=== PATIENT | female | born 1995 | race Caucasian/White ===

== ENCOUNTER 2021-12-08 21:35 | Emergency (ER) | payer BC, SELFPAY ==
[2021-12-08 21:36] VITALS: BP 127/80; PULSE 100; RESP 18; TEMP 36.9; O2SAT 98; BMI 26.7
--- NOTE | 2021-12-08 22:10 | HMH.EDDIZZ ---
ED Disposition Clinical Impression: Mononucleosis, infectious, with hepatitis Disposition: Home, Self-Care Condition on Discharge: Good Instructions: DI for Mononucleosis-Adult Additional Instructions: fluids and see pcp for f/u and follow labs Referrals: Provider,Referral, [Primary Care Provider] - - Critical Care Critical Care Time: No Attestation: On 12/08/21, the high probability of a clinically significant, sudden or life threatening deterioration of the following system(s) required my full and direct attention, intervention and personal management. The time I documented below is in addition to time spent performing reported procedures but includes the following listed in this critical care notation. Medical Decision Making - Medical Records Medical records reviewed: Yes: I reviewed the patient's medical records. - Noman Inquiry Pt receiving controlled substance: No Vital Signs: 12/08/21 21:36 Temperature 98.5 F Temperature Source Oral Pulse Rate [Left Radial] 100 H Respiratory Rate 18 Blood Pressure [Right Arm] 127/80 Blood Pressure Mean [Right Arm] 95 02 Sat by Pulse Oximetry 98 Oxygen Delivery Method Room Air - Lab Data Lab results reviewed: Yes: I reviewed the patient's lab results. Lab Results 12/08/21 22:25: ESR 17 12/08/21 22:25: C-Reactive Protein 15.2 H, Procalcitonin 0.201 12/08/21 22:25: WBC 6.7, RBC 5.07, Hgb 13.7, Hct 41.3, MCV 81.4, MCH 26.9 L, MCHC 33.1, RDW 16.0, Plt Count 205, MPV 7.4, Neut % (Auto) 32.6 L, Lymph % (Auto) 61.8 H, [place] % (Auto) 5.0, Eos % (Auto) 0.5, Baso % (Auto) 5.1 H, Neut # (Auto) 2.2, Lymph # (Auto) 4.1, [place] # (Auto) 0.3, Eos # (Auto) 0.0, Baso # (Auto) 0.3 H, Total Counted 100, Neutrophils % (Manual) 30 L, Lymphocytes % (Manual) 68 H, Monocytes % (Manual) 1 L, Basophils % (Manual) 1.0, Platelet Estimate Normal, RBC Morphology Normal 12/08/21 22:25: Sodium 136, Potassium 3.9, Chloride 104, Carbon Dioxide 27, Anion Gap 8.9, BUN 10, Creatinine 0.90, Estimated Creat Clear 108, Estimated GFR 77, Est GFR ( Amer) 93, Glucose 100, Calcium 9.0, Total Bilirubin 0.8, AST 637 H*, ALT 231 H, Alkaline Phosphatase 253 H, Total Protein 8.1, Albumin 4.5, Globulin 3.6 H, Albumin/Globulin Ratio 1.3 12/08/21 22:25: Lactate 0.8 12/08/21 22:25: Monoscreen Positive A 12/08/21 22:40: Urine Color Yellow, Urine Appearance Clear, Urine pH 7.5, Ur Specific [place] 1.010, Urine Protein Negative, Urine Glucose (UA) Negative, Urine Ketones Negative, Urine Blood 1+, Urine Nitrate Negative, Urine Bilirubin Negative, Urine Urobilinogen 0.2, Ur Leukocyte Esterase Negative, Urine RBC 3-5, Urine WBC 3-5, Ur Squamous Epith Cells 3-5, Urine Bacteria 1+ Result diagrams: 12/08/21 22:25 12/08/21 22:25 Orders (Tests/Meds): ED MEDICATIONS Generic Name Dose Route Start Last Admin Trade Name Freq PRN Reason Stop Dose Admin Lactated Ringer's 1,000 mls @ 999 mls/hr 12/08/21 22:30 12/08/21 22:44 Lactated Ringer's 1000 Ml Bag IV 12/08/21 23:30 999 mls/hr .Q1H1M ANN Administration ORDERS Category Date Time Status Blood Culture Stat Micro 12/08/21 22:25 Received - CT Data CT Scan: Head, Sinus Time Received: 23:[address] Reviewed: Yes: I have viewed the radiologist's interpretation Preliminary Findings: Normal/NAD Medical Decision Narrative: has prob mono - has elevated lft but not help syndrome and stable Dizzy HPI - General Chief Complaint: Ear Stated Complaint: dizzy Time Seen by Provider: 12/08/21 22:10 Mode of Arrival: Ambulatory Source of Information: Patient, Spouse, Medical Record Limitations: No Limitations Description of Symptoms (Recalled from ER Triage Doc. by RN): LEFT EAR PAIN AND DIZZINESS X 2 DAYS. PT REPORTS SHE IS BREAST FEEDING AND 11 WEEKS - History of Present Illness HPI Narrative: acute onset of dizzyness with mov and at rest since sat - no trauma but reported temp today - no rash or focal changes - is 11 weeks post-partu
--- NOTE | 2021-12-08 22:19 | CT_ITS ---
PROCEDURE INFORMATION: Exam: CT Maxillofacial Without Contrast, Sinus Exam date and time: 12/08/2021 10:33 PM Age: 26 years old Clinical indication: Other: Dizziness, ear pain TECHNIQUE: Imaging protocol: CT Maxillofacial without contrast. Focus on the sinuses. Radiation optimization: All CT scans at this facility use at least one of these dose optimization techniques: automated exposure control; mA and/or kV adjustment per patient size (includes targeted exams where dose is matched to clinical indication); or iterative reconstruction. COMPARISON: CT HEAD/BRAIN WO CON 12/08/2021 10:31 PM FINDINGS: Frontal sinuses: Normal. No air-fluid levels. Ethmoid air cells: Normal. No air-fluid levels. Sphenoid sinuses: Normal. No air-fluid levels. Maxillary sinuses: Subtle mucosal thickening in the maxillary sinuses. Air-fluid level in the right maxillary sinus. Ostiomeatal units are patent. Nasal cavity/Septum: Right nasal viktoria bullosa deformity. Orbital cavities: Orbits are normal. Globes are unremarkable. Bones/joints: Unremarkable. Soft tissues: Unremarkable. Temporal bone: Normal bilateral temporal bones. Bony scutum bilaterally are sharp and intact. Bilateral ossicular chains and semi circular canals are normal. Bilateral Prussak's space is normal. Bilateral middle and inner ears are patent. IMPRESSION: Unremarkable sinuses.
--- NOTE | 2021-12-08 22:19 | CT_ITS ---
PROCEDURE INFORMATION: Exam: CT Head Without Contrast Exam date and time: 12/08/2021 10:31 PM Age: 26 years old Clinical indication: Dizziness; Additional info: Dizziness, ear pain TECHNIQUE: Imaging protocol: Computed tomography of the head without contrast. Radiation optimization: All CT scans at this facility use at least one of these dose optimization techniques: automated exposure control; mA and/or kV adjustment per patient size (includes targeted exams where dose is matched to clinical indication); or iterative reconstruction. COMPARISON: No relevant prior studies available. FINDINGS: Brain: Normal. No hemorrhage. Unremarkable white matter. No mass effect. Cerebral ventricles: No ventriculomegaly. Paranasal sinuses: Visualized sinuses are unremarkable. No fluid levels. Mastoid air cells: Visualized mastoid air cells are well aerated. Bones/joints: Unremarkable. No acute fracture. Soft tissues: Unremarkable. IMPRESSION: No acute intracranial abnormality.
[2021-12-08 22:43] LABS: Basophils # 0.3 K/mm3 (0-0.2); Basophils % 5.1 % (0.1-2.0); Eosinophils % 0.5 % (0.1-12.0); Hematocrit 41.3 % (37.0-47.0); Hemoglobin 13.7 g/dL (12.2-16.2); Lymphocytes # 4.1 K/mm3 (0.7-4.5); Lymphocytes % 61.8 % (10-50); Mean Corpuscular HGB Conc 33.1 g/dL (31.8-35.4); Mean Corpuscular Hemoglobin 26.9 pg (27.0-31.2); Mean Corpuscular Volume 81.4 fl (81-99); Mean Platelet Volume 7.4 fl (7.4-10.4); Monocytes # 0.3 K/mm3 (0.1-1.0); Neutrophils # 2.2 K/mm3 (1.8-7.8); Neutrophils % 32.6 % (37.0-80.0); Platelet Count 205 K/mm3 (142-424); Red Blood Count 5.07 M/mm3 (4.20-5.40); White Blood Count 6.7 K/mm3 (4.8-10.8)
[2021-12-08 22:45] LABS: MANUAL DIFFERENTIAL MANUAL DIFFERENTIAL (MANUAL DIFF)
[2021-12-08 22:47] LABS: Monoscreen (Rapid) Positive (Negative)
[2021-12-08 22:47] LABS: Microscopic, Urine URINE MICROSCOPIC (MICROSCOPIC)
--- NOTE | 2021-12-08 22:49 | PC.NURSE ---
patient back from CT, blanket given
[2021-12-08 22:50] LABS: Lactic Acid 0.8 mmol/L (0.7-2.1)
[2021-12-08 22:51] LABS: Alanine Aminotransferase 231 U/L (12-78); Albumin Level 4.5 g/dl (3.5-5.0); Albumin/Globulin Ratio 1.3 (1.1-1.8); Alkaline Phosphatase 253 U/L (38-126); Anion Gap 8.9 mEq/L (5-15); Aspartate Amino Transferase 637 U/L (14-36); Bilirubin,Total 0.8 mg/dl (0.2-1.3); Blood Urea Nitrogen 10 mg/dl (7-17); Carbon Dioxide 27 mmol/L (22.0-30.0); Chloride 104 mmol/L (98-107); Creatinine Clearance Estimated 108 mL/min (50-200); Estimated Glomerular Filt Rate 77 ml/min (>60); GFR (African American) 93 ML/MIN (>60); Globulin 3.6 g/dL (1.3-3.2); Glucose 100 mg/dl (74-100); Potassium 3.9 mmoL/L (3.5-5.1); Sodium 136 mmol/L (136-145); Total Protein,Serum 8.1 g/dl (6.3-8.2)
[2021-12-08 22:51] LABS: Appearance,Urine CLEAR (Clear); Bilirubin,Urine Negative (Negative); Blood, Urine 1+ (Negative); Color,Urine YELLOW (Yellow); Glucose,Urine (UA) Negative (Negative); Ketones,Urine Negative (Negative); Leukocyte Esterase,Urine Negative (Negative); Nitrate,Urine Negative (Negative); PH,Urine 7.5 (5.0-8.5); Protein,Urine Negative (Negative); Urobilinogen,Urine 0.2 EU/dl (0.2)
[2021-12-08 22:55] LABS: C-Reactive Protein 15.2 mg/L (0-4)
[2021-12-08 23:02] LABS: Bacteria,Urine 1+ /lpf
[2021-12-08 23:08] LABS: Procalcitonin 0.201 ng/mL (0.0-2.0)
[2021-12-08 23:11] LABS: Lymphocytes % 68 % (10-50); Monocytes % 1 % (2-9); Neutrophils % 30 % (42-76); Platelet Estimate Normal; RBC Morphology Normal; Total Cells Counted 100
[2021-12-08 23:21] LABS: Erythrocyte Sedimentation Rate 17 mm/hr (0-20)
[2021-12-08 23:27] VITALS: BP 120/78; PULSE 85; RESP 18; TEMP 36.9; O2SAT 99
== END 2021-12-08 23:42 | disposition home or self-care (01) ==
PROVIDERS: Emergency Provider Emergency Medicine
DX: B27.90 Infectious mononucleosis, unspecified without complication (principal)
CPT/HCPCS: 70450; 70486; 80053; 81001; 83605; 84145; 85007; 85025; 85651; 86140; 86318; 87040; 96360; 99284

== ENCOUNTER → 2022-04-20 09:40 | Outpatient (CLI) | payer BC, SELFPAY ==
--- NOTE | 2022-04-20 09:45 | XR_ITS ---
FINAL REPORT CLINICAL HISTORY: PAIN IN left WRIST FINDINGS: 3 views of the left wrist were obtained. There is a small cyst in the lunate. There is no acute fracture or dislocation. The joint spaces are intact. There is no soft tissue abnormality. IMPRESSION: No acute abnormality. Reviewed, Interpreted and Dictated by Misael Webb III, MD Transcribed by Nikita Lauren Authenticated and [facility]
== END ==
PROVIDERS: PCP Nurse Practitioner; Visit Provider Nurse Practitioner
DX: M25.532 Pain in left wrist (principal)
CPT/HCPCS: 73110

== ENCOUNTER 2022-05-06 12:08 | Emergency (ER) | payer BC, SELFPAY ==
[2022-05-06 12:09] VITALS: BP 127/86; PULSE 100; RESP 22; TEMP 37; O2SAT 98; BMI 29.2
--- NOTE | 2022-05-06 13:11 | EXP.UTC ---
Discharge Plan Disposition Patient Disposition: Home, Self-Care Condition: Good Prescriptions Prescriptions: New benzonatate [benzonatate] 100 mg capsule 100 mg PO TIDP PRN (Reason: Cough) Qty: 30 0RF oluasrjkchghenj-tnywuwaoe-RJ [Bromfed DM] 2-30-10 mg/5 mL Syrup 5 ml PO Q6H PRN (Reason: Cough) Qty: 240 0RF Referrals Follow up/Referrals: Shakira Smith APRN [Primary Care Provider] - See instructions Activity Restrictions/Add. Instructions Additional Instructions/Restrictions: Drink plenty of fluids. Take tylenol for pain or fever. Return if you begin to have difficulty breathing. Follow up with your regular doctor. GO TO THE ER FOR ANY WORSENING SYMPTOMS You need to be tested for viral illnesses, such as covid-19, etc. Clinical Impressions Clinical Impression: Acute viral syndrome Instructions Patient Instructions: DI for Viral Syndrome Discharge ED Provider: Jeramie Van [facility] General Stated complaint: Congestion Time Seen by Provider: 05/06/22 13:11 History of Present Illness Provider Complaint: She c/o sore throat and congestion for the past 2 days Related Data Previous Rx's Medication Instructions Recorded benzonatate 100 mg capsule 100 mg PO TIDP PRN Cough #30 caps 05/06/22 nnicdefxgzppnvd-jusxkzcmhlppncp-WQ 5 ml PO Q6H PRN Cough #240 mL 05/06/22 2 mg-30 mg-10 mg/5 mL oral syrup (Bromfed DM) Allergies Allergy/AdvReac Type Severity Reaction Status Date / Time Sulfa (Sulfonamide Allergy Rash Verified 12/08/21 22:18 Antibiotics) [facility] Social History Smoking Status: Never smoker alcohol intake: never current occupational status: employed Travel in the last 8 weeks: None ROS Obtained: Yes All systems reviewed & no additional complaints except as documented Constitutional Constitutional: Reports system reviewed and no additional complaints, except as documented, Denies chills and Denies fever(s) Eyes Eyes: Denies eye discharge ENT Ears, Nose, Mouth, and Throat: Denies dysphagia, Denies sore throat and Denies throat swelling Cardiovascular Cardiovascular: Denies chest pain and Denies dyspnea Respiratory Respiratory: Denies chest congestion, Denies cough and Denies dyspnea Gastrointestinal Gastrointestingal: Denies abdominal pain, constipation, diarrhea, dysphagia, nausea or vomiting Musculoskeletal Musculoskeletal: Denies arthralgias Integumentary/Breasts Skin/Breast: Denies rash Neurologic Neurologic: Denies paresthesias Allergic/Immunologic Allergic/Immunologic: Denies throat swelling Physical Exam General General appearance: alert and in no apparent distress Head Head exam: atraumatic, normocephalic and normal inspection Eye Eye exam: Present normal appearance, PERRL and EOMI ENT ENT exam: Present normal exam, normal oropharynx, mucous membranes moist, TM's normal bilaterally and normal external ear exam Neck Neck exam: Present normal inspection, full ROM and trachea midline; Absent meningismus or lymphadenopathy Chest Chest inspection: Present normal inspection and symmetric chest wall rise; Absent tenderness Respiratory Respiratory exam: Present normal lung sounds bilaterally; Absent respiratory distress Cardiovascular Cardiovascular exam: Present regular rate and normal rhythm; Absent JVD Abdominal Exam Abdominal exam: Present soft and normal bowel sounds; Absent distention, tenderness or guarding Extremities Exam Extremities exam: Present normal inspection, full ROM and normal capillary refill; Absent calf tenderness Back Exam Back exam: Present normal inspection; Absent tenderness Neurological Exam Neurological exam: Present alert and oriented X3 Psychiatric Psychiatric exam: Present normal affect and normal mood Skin Skin exam: Present warm, dry, intact and normal color Lymphatic Lymphatic Findings: no adenopathy Medical Decision Making Medical Records Medic
[2022-05-06 13:14] LABS: UTC Strep Screen (Rapid) Negative (Negative)
[2022-05-06 13:58] VITALS: BP 124/86; PULSE 100; RESP 22; TEMP 37; O2SAT 98
--- NOTE | 2022-05-06 14:07 | PC.NURSE ---
Addendum entered by Felecia Raman RN 05/06/22 14:07: pt refused Original Note: mother refused covid test
== END 2022-05-06 14:08 | disposition home or self-care (01) ==
PROVIDERS: Emergency Provider Nurse Practitioner Family; PCP Nurse Practitioner
DX: B34.9 Viral infection, unspecified (principal); J02.9 Acute pharyngitis, unspecified; R09.81 Nasal congestion
CPT/HCPCS: 87880; 99212; G0463

== ENCOUNTER 2023-06-24 10:21 | Emergency (ER) | payer BC, SELFPAY ==
[2023-06-24 10:40] VITALS: BP 119/83; PULSE 115; RESP 18; TEMP 37.1; O2SAT 98; BMI 30.7
--- NOTE | 2023-06-24 10:52 | EXP.UTC ---
Discharge Plan Disposition Patient Disposition: Home, Self-Care Condition: Good Prescriptions Prescriptions: New methylprednisolone 4 mg Tablets,Dose Pack 4 mg PO DIRECTED Qty: 21 0RF rtoxjgtlufyhuqj-ujiqxdokv-HE [Bromfed DM] 2-30-10 mg/5 mL Syrup 5 ml PO Q6H PRN (Reason: Cough) Qty: 240 0RF cefdinir 300 mg capsule 300 mg PO BID Qty: 20 0RF No Action Cleocin 100 mg suppository See Rx Instructions .ROUTE .COMPLEX Patient Comments: INSERT 1 SUPPOSITORY INTO THE VAGINA IN THE EVENING FOR 3 DAYS Rx Instructions: INSERT 1 SUPPOSITORY INTO THE VAGINA IN THE EVENING FOR 3 DAYS Referrals Follow up/Referrals: Provider,Referral, MD [Primary Care Provider] - See instructions Activity Restrictions/Add. Instructions Additional Instructions/Restrictions: Drink plenty of fluids. Take tylenol or ibuprofen for pain or fever. Take the medications as directed. Follow up with your regular doctor. GO TO THE ER FOR ANY WORSENING SYMPTOMS Clinical Impressions Clinical Impression: Otitis media, Acute viral syndrome, Upper respiratory infection Instructions Patient Instructions: Middle Ear Infection Discharge ED Provider: Jeramie Van [facility] General Stated complaint: ANGUIANO, ear pain Time Seen by Provider: 06/24/23 10:52 History of Present Illness Provider Complaint: She states that for the past 2 days she has had sore throat, chills, body aches and low grade fever. Related Data Home Medications Medication Instructions Recorded Confirmed clindamycin phosphate 100 mg See Rx Instructions .Route .COMPLEX 06/24/23 06/24/23 vaginal suppository (Cleocin) Previous Rx's Medication Instructions Recorded axugearmuucibtu-pykoojgpxtpmocz-PA 5 ml PO Q6H PRN Cough #240 mL 06/24/23 2 mg-30 mg-10 mg/5 mL oral syrup (Bromfed DM) cefdinir 300 mg capsule 300 mg PO BID #20 caps 06/24/23 methylprednisolone 4 mg tablets in 4 mg PO DIRECTED #21 tabs 06/24/23 a dose pack Allergies Allergy/AdvReac Type Severity Reaction Status Date / Time Penicillins Allergy Verified 06/24/23 10:57 Sulfa (Sulfonamide Allergy Rash Verified 06/24/23 10:57 Antibiotics) [facility] Disclaimer: The information contained in this section may have been updated after the patient was seen, as this information can be updated by other users. Social History Smoking Status: Never smoker alcohol intake: never current occupational status: employed Travel in the last 8 weeks: None ROS Obtained: Yes All systems reviewed & no additional complaints except as documented Constitutional Constitutional: Reports chills and Reports fever(s) Eyes Eyes: Denies eye discharge ENT Ears, Nose, Mouth, and Throat: Reports as per HPI Cardiovascular Cardiovascular: Denies chest pain Respiratory Respiratory: Denies chest congestion and Reports cough Gastrointestinal Gastrointestingal: Reports nausea; Denies abdominal pain, constipation, cramping, diarrhea or vomiting Musculoskeletal Musculoskeletal: Denies arthralgias Integumentary/Breasts Skin/Breast: Denies rash Neurologic Neurologic: Denies paresthesias Physical Exam General General appearance: alert and in no apparent distress Head Head exam: atraumatic, normocephalic and normal inspection Eye Eye exam: Present normal appearance; Absent PERRL or EOMI ENT ENT exam: Present mucous membranes moist and normal external ear exam Expanded ENT Exam TM/Canal exam: Bilateral TM: erythema, bulging and effusion Nose exam: Absent sinus tenderness Nasal speculum exam: Bilateral: normal Mouth exam: Present normal external inspection and other; Absent drooling Teeth exam: Present normal inspection Throat exam: Present tonsillar erythema and tonsillomegaly Neck Neck exam: Present normal inspection, full ROM and trachea midline; Absent tenderness, meningismus or lymphadenopathy Chest Chest inspection:
[2023-06-24 11:52] VITALS: BP 119/83; PULSE 115; RESP 18; TEMP 37.1; O2SAT 98
== END 2023-06-24 11:30 | disposition home or self-care (01) ==
PROVIDERS: Emergency Provider Nurse Practitioner Family
DX: H66.93 Otitis media, unspecified, bilateral (principal); J06.9 Acute upper respiratory infection, unspecified; B34.9 Viral infection, unspecified
CPT/HCPCS: 99212; 99214; G0463

== ENCOUNTER → 2023-08-17 23:33 | Outpatient (CLI) | payer BC, SELFPAY ==
[2023-08-17 18:55] LABS: Adenovirus,PCR Not Detected (NotDetected); Coronavirus 19, PCR Not Detected (NotDetected); Coronavirus 229E Not Detected (NotDetected); Coronavirus NL63 Not Detected (NotDetected); Coronavirus OC43 Not Detected (NotDetected); Coronovirus HKU1,PCR Not Detected (NotDetected); Human Metapneumovirus Not Detected (NotDetected); Influenza A, PCR Not Detected (NotDetected); Influenza AH1, 2009 Not Detected (NotDetected); Influenza AH1, PCR Not Detected (NotDetected); Influenza AH3,PCR Not Detected (NotDetected); Influenza B, PCR Not Detected (NotDetected); Parainfluenza 1, PCR Not Detected (NotDetected); Parainfluenza 2, PCR Not Detected (NotDetected); Parainfluenza 3, PCR Not Detected (NotDetected); Parainfluenza 4, PCR Not Detected (NotDetected); Respiratory Syncytial Virus Not Detected (NotDetected)
[2023-08-18 00:54] LABS: Rhinovirus/Enterovirus Detected (NotDetected)
== END ==
LOC: LAB.DROPOF 23:34
PROVIDERS: PCP Nurse Practitioner Family; Visit Provider Nurse Practitioner Family
DX: R05.9 Cough, unspecified (principal); B34.1 Enterovirus infection, unspecified
CPT/HCPCS: 87581; 87632; 87635; 87798

== ENCOUNTER 2024-06-10 11:10 | Emergency (ER) | payer BC, SELFPAY ==
--- NOTE | 2024-06-10 11:40 | ED_ITS ---
Discharge Plan Disposition Patient Disposition: Home, Self-Care Condition: Good Prescriptions Prescriptions: New mupirocin 2 % ointment 1 applic topical TID 7 Days Qty: 15 0RF clindamycin palmitate HCl 75 mg/5 mL recon soln 300 mg PO Q8H 10 Days Qty: 600 0RF Referrals Follow up/Referrals: Shahrzad Manning APRN [Primary Care Provider] - See instructions Activity Restrictions/Add. Instructions Additional Instructions/Restrictions: Take the oral antibiotics and apply the topical antibiotic ointment as directed. Watch the wound for signs of worsening infection, such as worsening redness, swelling, drainage, fever. etc. Follow up with your regular doctor. GO TO THE ER FOR ANY WORSENING SYMPTOMS OR CONCERNS Clinical Impressions Clinical Impression: Cellulitis of left foot Stand Alone Forms Stand Alone Forms: Work/School Release Instructions Patient Instructions: Cellulitis Print Language Print Language: Persian Discharge ED Provider: Jeramie Van [facility] HPI General Stated complaint: red, swell, discharge at injection site, L foot Time Seen by Provider: 06/10/24 11:40 History of Present Illness Provider Complaint: She states that she has had redness and swelling of the top of her left foot and the area between her 3rd and 4th toes. She has an open area in between these toes also. She denies any fever/chills/malaise. Related Data Previous Rx's ?Medication ?Instructions ?Recorded clindamycin palmitate HCl 75 mg/5 300 mg (20 mL) PO Q8H 10 days #600 06/10/24 mL oral solution mL mupirocin 2 % topical ointment 1 applic topical TID 7 days #15 06/10/24 grams Allergies Allergy/AdvReac Type Severity Reaction Status Date / Time Penicillins Allergy Verified 08/17/23 10:28 Sulfa (Sulfonamide Allergy Rash Verified 08/17/23 10:28 Antibiotics) [facility] Disclaimer: The information contained in this section may have been updated after the patient was seen, as this information can be updated by other users. Medical History (Updated 06/10/24 @ 12:36 by Jeramie Van APRN) Upper respiratory infection Acute viral syndrome Otitis media Mononucleosis, infectious, with hepatitis Surgical History (Updated 08/17/23 @ 10:29 by Jass Delaney) No significant past surgical history Family History (Updated 08/17/23 @ 10:29 by Jass Delaney) Other No significant family history Social History Smoking Status: Never smoker alcohol intake: never current occupational status: employed Travel in the last 8 weeks: None ROS Obtained: Yes All systems reviewed & no additional complaints except as documented Constitutional Constitutional: Denies chills and Denies fever(s) Eyes Eyes: Denies eye discharge ENT Ears, Nose, Mouth, and Throat: Denies dizziness, Denies otalgia and Denies sore throat Cardiovascular Cardiovascular: Denies chest pain Respiratory Respiratory: Denies shortness of breath, Denies chest congestion, Denies cough, Denies stridor and Denies wheezing Gastrointestinal Gastrointestingal: Denies nausea or vomiting Musculoskeletal Musculoskeletal: Reports system reviewed and no additional complaints, except as documented and Denies arthralgias Integumentary/Breasts Skin/Breast: Reports as per HPI and Reports redness Neurologic Neurologic: Denies dizziness and Denies paresthesias Allergic/Immunologic Allergic/Immunologic: Denies wheezing Physical Exam General General appearance: alert and in no apparent distress Head Head exam: atraumatic, normocephalic and normal inspection Eye Eye exam: Present normal appearance, PERRL and EOMI ENT ENT exam: Present normal exam, normal oropharynx, mucous membranes moist, TM's normal bilaterally and normal external ear exam Neck Neck exam: Present normal inspection, full ROM and trachea midline; Absent meningismus or lymphadenopathy Chest Chest inspection: Present normal inspection and symmetric chest wall rise; Absent tenderness Respiratory Respiratory exam: Present normal lung sounds bilaterally; Absent respiratory distress Cardiovascular Cardiovascular exam: Present regular rate and normal rhythm; Absent JVD Abdominal Exam Abdominal exam: Present soft and normal bowel sounds; Absent distention, tenderness or guarding Extremities Exam Extremities exam: Present normal inspection, full ROM and normal capillary refill; Absent calf tenderness Back Exam Back exam: Present normal inspection; Absent tenderness Neurological Exam Neurological exam: Present alert and oriented X3 Psychiatric Psychiatric exam: Present normal affect and normal mood Skin Skin exam: Present erythema Lymphatic Lymphatic Findings: no adenopathy Medical Decision Making Medical Records Medical records reviewed: No I reviewed the patient's medical records. Screening: Per USPSTF and CDC recommendations, given the prevalence of disease in our region, it is our hospital?s policy to screen for HIV and viral Hepatitis for all patients aged 18 and over and those with ongoing risk factors. [place] Inquiry Pt receiving controlled substance: No
[2024-06-10 11:43] VITALS: BP 96/52; PULSE 79; RESP 20; TEMP 37.2; O2SAT 100; BMI 34.0
[2024-06-10 12:45] VITALS: BP 96/52; PULSE 79; RESP 20; TEMP 37.2
== END 2024-06-10 12:46 | disposition home or self-care (01) ==
PROVIDERS: Emergency Provider Nurse Practitioner Family; PCP Nurse Practitioner Family
DX: L03.116 Cellulitis of left lower limb (principal)
CPT/HCPCS: 87070; 87077; 87186; 87205; 99213; G0381

== ENCOUNTER 2024-11-28 10:00 | Outpatient (CLI) | payer BC, SELFPAY ==
--- NOTE | 2024-11-28 10:03 | XR_ITS ---
FINAL REPORT CLINICAL HISTORY: Nonspecific cough COMPARISON: None FINDINGS: No acute pulmonary density is evident. There are tiny calcified granulomas. There is no evidence of effusion or other pleural disease. The mediastinum has a normal appearance. The cardiac silhouette is unremarkable. IMPRESSION: No acute findings. Reviewed, Interpreted and Dictated by Manju Smith MD Transcribed by Irene Sadler Authenticated and [facility]
== END 2024-11-28 23:59 | disposition home or self-care (01) ==
LOC: RAD 10:01
PROVIDERS: PCP Nurse Practitioner Family; Visit Provider Nurse Practitioner
DX: R09.89 Other specified symptoms and signs involving the circulatory and respiratory systems (principal)
CPT/HCPCS: 71046